=== PATIENT | female | born 1945 ===

== ENCOUNTER 2020-08-05 11:00 | Inpatient (IN) | payer OTHER ==
[~2020-08-05] VITALS: Ht 152.4 cm; Wt 68.5 kg
[2020-08-05] MEDS ORDERED: ATACAND16 MG PO (14:48)
[2020-08-05] MEDS ORDERED: FORTAMET500 MG PO (14:49)
[2020-08-05] MEDS ORDERED: LEVO-T25 MCG PO (14:49)
[2020-08-05] MEDS ORDERED: NAPROXEN500 MG PO (14:50)
[2020-08-05] MEDS ORDERED: DITROPAN XL5 MG PO (14:50)
[2020-08-16] MEDS ORDERED: ULTRACET PO (08:14)
[2020-08-16] MEDS ORDERED: HYOSCYAMINE0.125 M1 SL (08:14)
[2020-08-16] MEDS ORDERED: LEVOFLOXACIN500 MG PO (08:15)
== END 2020-08-16 10:20 | disposition home or self-care (01) | DRG 330 ==
LOC: O/R 08-12 08:30 → SURH 08-12 08:30
PROVIDERS: ADMIT Surgery; ATTEND Surgery
PROC: 0UQG4ZZ Repair Vagina, Percutaneous Endoscopic Approach (ICD-10-PCS; 2020-08-12)
PROC: 0DJD8ZZ Inspection of Lower Intestinal Tract, Via Natural or Artificial Opening Endoscopic (ICD-10-PCS; 2020-08-12)
PROC: 0DBN4ZZ Excision of Sigmoid Colon, Percutaneous Endoscopic Approach (ICD-10-PCS; principal; 2020-08-12 15:15)
DX: N82.3 Fistula of vagina to large intestine (principal); K57.32 Diverticulitis of large intestine without perforation or abscess without bleeding